=== PATIENT | male | born 1950 ===

== ENCOUNTER 2024-01-30 14:50 | Outpatient (REF) | payer MEDICARE, SELFPAY | END 2024-01-30 14:51 | disposition home or self-care (01) | LOC: HO.SH 14:50 | PROVIDERS: Visit Provider Family Medicine | DX: Z01.118 Encounter for examination of ears and hearing with other abnormal findings (principal); H90.3 Sensorineural hearing loss, bilateral | CPT/HCPCS: 92557; 92567 ==

== ENCOUNTER 2024-02-08 08:58 | Outpatient (REF) | payer MEDICARE, SELFPAY | END 2024-02-08 08:59 | disposition home or self-care (01) | LOC: HO.SH 08:58 | PROVIDERS: Visit Provider Family Medicine | DX: Z01.118 Encounter for examination of ears and hearing with other abnormal findings (principal); H90.3 Sensorineural hearing loss, bilateral | CPT/HCPCS: 92553; 92567 ==